=== PATIENT | female | born 1980 | race Caucasian/White ===

== ENCOUNTER 2020-07-19 14:02 | Outpatient (CLI) | payer SELFPAY ==
--- NOTE | 2020-07-19 14:10 | CT_ITS ---
WS: [id number] CT neck w con* [id number] REASON FOR EXAM: OROPHARYNGEAL DYSPHAGIA IV CONTRAST ADMINISTERED: 75 mL's of Omnipaque 300. TOTAL EXAM DLP: 448.[address] scans at [facility] use at least one of these dose optimization techniques: automat ed exposure control; mA and/or kV adjustment per patient size (includes targeted exams where dose is matched to clinical indication); or iterative reconstruction. FINDINGS: The cervical spine is unremarkable. The thyroid gland is normal. The salivary glands are normal. No adenopathy or other neck mass. The oral and nasopharynx and tongue are unremarkable. The esophagus to the level of the aortic arch is unremarkable. CT/CT neck w con* [id number] IMPRESSION: No significant abnormality. The esophagus is unremarkable from the upper cervic al region to the aortic arch. If not previously done or contraindicated a barium swallowing study and/or esop hagram would be very helpful in evaluation of a swallowing disorder.
[2020-07-19] MEDS: iohexol 300 mg/mL 100 mL Btl IV (14:26)
== END 2020-07-19 14:03 | disposition home or self-care (01) ==
LOC: RAD 14:06
PROVIDERS: PCP Family Medicine; Visit Provider Nurse Practitioner Family
DX: R13.12 Dysphagia, oropharyngeal phase (principal)
CPT/HCPCS: 70491

== ENCOUNTER 2020-08-09 08:12 | Outpatient (CLI) | payer SELFPAY ==
--- NOTE | 2020-08-09 08:26 | FL_ITS ---
WS: [id number] Barium swallow and esophagram, 08/09/2020 Clinical Data: DYSPHAGIA, OROPHARYNGEAL PHASE Comparison: None. Fluoroscopy time: 1.2 minutes. Findings: The patient swallowed the thick and thin barium, and there was hesitancy in initiating swallowing. On ce the swallowing started there was vallecular pooling and difficulty in clearing on multiple swallow ing attempts. There is minimal penetration of the barium but there was no distinct aspiration. No ach alasia or diverticulum was seen in the hypopharynx. The barium entered the esophagus and there was normal motility throughout. No hiatal hernia, strictu re, polyp, mass, erosion or ulcer was noted. No reflux was present. FL/FL barium swallow [id number] Impression: 1. Hesitancy in initiating swallowing. 2. Vallecular pooling which cleared after multiple swallowing attempts. 3. Penetration of the barium without distinct aspiration. 4. The esophagus was normal with no hiatal hernia or reflux.
== END 2020-08-09 08:13 | disposition home or self-care (01) ==
LOC: RADWPI 08:15
PROVIDERS: PCP Family Medicine; Visit Provider Specialist
DX: R13.12 Dysphagia, oropharyngeal phase (principal)
CPT/HCPCS: 74220